=== PATIENT | female | born 1965 | race Caucasian/White ===

== ENCOUNTER 2017-11-02 07:57 | Day surgery (SDC) | payer MEDICAID ==
[2017-11-02] MEDS ORDERED: FENTAnyl 50 MCG/ML VIAL (10:12)
[2017-11-02] MEDS ORDERED: MIDAZOLAM 1 MG/ML 2 ML INJ ×2 (10:12→10:13)
== END 2017-11-02 10:18 | disposition home or self-care (01) ==
LOC: GIL 07:57
DX: Z12.11 Encounter for screening for malignant neoplasm of colon (principal); B96.81 Helicobacter pylori [H. pylori] as the cause of diseases classified elsewhere; K29.60 Other gastritis without bleeding; K64.8 Other hemorrhoids; I10 Essential (primary) hypertension; Z79.82 Long term (current) use of aspirin
CPT/HCPCS: 43239; 87081